=== PATIENT | female | born 1995 | race Hispanic/Latino ===

== ENCOUNTER → 2019-08-15 | Day surgery (SDC) | payer BC ==
[~2019-08-15] MED LIST: DICYCLOMINE HCL20 MG PO; FENTANYL CITRATE/PF 100MCG/2 ML INJ ONE; HYOSCYAMINE 0.125 MG TAB ONE; MIDAZOLAM HCL 2 MG/2 ML VIAL ONE; PROPOFOL IV EMULSION 10 MG/ML 50 ML VIAL ONE; VSL#3 CAPSULE1 EACH PO
[2019-08-15 12:52] VITALS: BP 106/63
--- NOTE | 2019-08-15 19:34 | Operative Report ---
DATE OF PROCEDURE: 08/15/2019 SURGEON: Benny Carrasco MD PROCEDURE: Colonoscopy with biopsies. INDICATIONS FOR COLONOSCOPY: History of ulcerative colitis. MEDICATIONS: The patient was done under MAC. Please see anesthesiologist's note. PROCEDURE IN DETAIL: With the patient in left lateral decubitus position, a flexible fiberoptic Olympus colonoscope was inserted into the rectum with ease and advanced all the way to the cecum. It was then withdrawn slowly. Mucosa overlying the cecum, ascending colon, and transverse colon appeared to be within normal limits. There was some patchy erythema noted in the left colon and rectum and random biopsies were obtained. The scope was then retroflexed into the distal rectum and the area around the dentate line appeared to be within normal limits. The scope was then straightened out, it was subsequently withdrawn. The patient tolerated the procedure well. IMPRESSION: 1. Previously described davis ulcerative colitis practically resolved. 2. Mild patchy residual inflammatory changes in the left colon and rectum, biopsies obtained. PLAN: Follow up histology. Initiate high-fiber, low-fat diet. Initiate high-fiber supplement. Benny Carrasco MD [facility] [place]/[facility] /[id number] cc: Leon Fernandez DO
== END | disposition home or self-care (01) ==
LOC: OR 07:23
PROVIDERS: ATTEND Internal Medicine Gastroenterology
DX: K51.00 Ulcerative (chronic) pancolitis without complications (principal); K62.89 Other specified diseases of anus and rectum; K27.7 Chronic peptic ulcer, site unspecified, without hemorrhage or perforation; Z88.1 Allergy status to other antibiotic agents; Z88.0 Allergy status to penicillin
CPT/HCPCS: 36415; 45380; 84702; J2250; J2704; J3010; 45378